=== PATIENT | female | born 1935 | race Caucasian/White ===

== ENCOUNTER → 2017-05-14 | Outpatient (CLI) | payer OTHER ==
[2017-05-14 16:38] LABS: Bilirubin, Urine Neg (Neg); Blood, Urine 2+ (Neg); Glucose Qualitative, Urine Neg (Neg); Ketones, Urine Neg (Neg); Leukocyte Esterase, Urine 3+ (Neg); Nitrite, Urine Neg (Neg); Protein, Urine Neg (Neg); Specific Gravity, Urine 1.015 (1.003-1.022); Urobilinogen, Urine NORM (Normal)
[2017-05-14 16:50] LABS: Appearance, Urine Hazy (Clear); Color, Urine Yellow (P-Yellow); White Blood Cells, Urine TNTC /hpf (0-5)
[2017-05-14 16:51] LABS: Bacteria Many /hpf; Squamous Epithelial Cells Few /hpf (Few)
== END | disposition home or self-care (01) ==
LOC: LAB 16:10
DX: R30.0 Dysuria (principal)
CPT/HCPCS: 81001; 87077; 87086; 87186

== ENCOUNTER → 2018-06-23 | Outpatient (CLI) | payer OTHER ==
[2018-06-23 09:30] LABS: Bilirubin, Urine Neg (Neg); Blood, Urine Neg (Neg); Glucose Qualitative, Urine Neg (Neg); Ketones, Urine Neg (Neg); Leukocyte Esterase, Urine 2+ (Neg); Nitrite, Urine Neg (Neg); Protein, Urine Neg (Neg); Specific Gravity, Urine 1.015 (1.003-1.022); Urobilinogen, Urine NORM (Normal)
[2018-06-23 09:31] LABS: Appearance, Urine Clear (Clear); Color, Urine Yellow (P-Yellow)
[2018-06-23 09:49] LABS: Bacteria Few /hpf; Red Blood Cells, Urine Not Seen /hpf (0-2); Squamous Epithelial Cells Mod /hpf (Few)
[2018-06-23 10:23] LABS: Microalbumin, Random Urine 9.45 mg/L (0.000-20.000)
== END | disposition home or self-care (01) ==
LOC: LAB SHORT 09:08 → LAB 09:08
DX: E78.5 Hyperlipidemia, unspecified (principal); E55.9 Vitamin D deficiency, unspecified; E11.29 Type 2 diabetes mellitus with other diabetic kidney complication
CPT/HCPCS: 81001; 82043; 82570

== ENCOUNTER 2019-03-08 12:32 | Inpatient (IN) | payer OTHER ==
[~2019-03-08] VITALS: Ht 165.1 cm; Wt 102.6 kg
[2019-03-08 13:05] LABS: BASOPHILS ABSOLUTE AUTO 0.04 K/mm3 (0.00-0.23); BASOPHILS PERCENT AUTO 0 % (0-2); EOSINOPHILS ABSOLUTE AUTO 0.03 K/mm3 (0.00-0.68); EOSINOPHILS PERCENT AUTO 0 % (0-6); Hematocrit 34.2 % (33.0-51.0); Hemoglobin 10.6 g/dL (11.5-16.0); IMMATURE GRAN ABSOLUTE AUTO 0.04 K/mm3 (0.00-0.10); IMMATURE GRAN PERCENT AUTO 0 % (0-1); LYMPHOCYTES ABSOLUTE AUTO 0.39 K/mm3 (0.84-5.20); LYMPHOCYTES PERCENT AUTO 4 % (21-46); MONOCYTES ABSOLUTE AUTO 0.49 K/mm3 (0.16-1.47); MONOCYTES PERCENT AUTO 5 % (4-13); Mean Platelet Volume 10.7 fL (9.1-12.4); NEUTROPHILS ABSOLUTE AUTO 8.33 K/mm3 (1.96-9.15); NEUTROPHILS PERCENT AUTO 89 % (41-73); Platelet Count 207 K/mm3 (150-400); RDW Coefficient Variation 15.2 % (11.7-14.2); RDW Standard Deviation 49.5 fL (35.1-46.3); Red Blood Cell Count 3.79 M/mm3 (3.80-5.20); White Blood Cell Count 9.32 K/mm3 (4.00-11.30)
[2019-03-08 13:09] LABS: Mean Corpuscular Volume 90 fL (80-100)
[2019-03-08 13:16] LABS: Alanine Aminotransfer (ALT/SGP 16 U/L (12-78); Albumin, Blood 3.5 g/dL (3.4-5.0); Albumin/Globulin Ratio 0.9 (0.8-1.8); Alk Phos 84 U/L (50-136); Anion Gap 9 mmol/L (6-16); Aspartate Aminotrans (AST/SGOT 8 U/L (12-37); Blood Urea Nitrogen 12 mg/dL (8-24); Bun/Creatinine Ratio 22.4 (12.0-20.0); CO2, Blood 26 mmol/L (21-32); Calcium, Blood 8.6 mg/dL (8.5-10.1); Chloride, Blood 102 mmol/L (98-108); Creatinine, Blood 0.54 mg/dL (0.40-1.00); Globulin, Blood 4.1 g/dL (2.2-4.0); Glomerular Filtration Rate >60 (60-); Glucose, Blood 167 mg/dL (70-99); Potassium, Blood 3.6 mmol/L (3.5-5.5); Sodium, Blood 137 mmol/L (136-145); Total Protein, Blood 7.6 g/dL (6.4-8.2)
[2019-03-08 15:26] LABS: Source, Urine Catheter
[2019-03-08 15:36] LABS: Blood, Urine 5+ (Neg); Glucose Qualitative, Urine Neg (Neg); Ketones, Urine 4+ (Neg); Leukocyte Esterase, Urine 1+ (Neg); Nitrite, Urine Neg (Neg); Protein, Urine 3+ (Neg); Specific Gravity, Urine 1.025 (1.003-1.022); Urobilinogen, Urine 2+ (Normal)
[2019-03-08 15:52] LABS: Appearance, Urine Hazy (Clear); Bilirubin, Urine 1+ (Neg); Color, Urine Amber (P-Yellow)
[2019-03-08 15:53] LABS: Bacteria Many /hpf; Mucus Light (0-Heavy); Red Blood Cells, Urine 25-50 /hpf (0-2); Squamous Epithelial Cells Mod /hpf (Few)
[2019-03-08] MEDS ORDERED: ASPI81CH PO (18:03)
[2019-03-08] MEDS ORDERED: LOSA25 PO (18:05)
[2019-03-08] MEDS ORDERED: AZO CRANBERRY1 EAC1 PO (18:05)
[2019-03-08] MEDS ORDERED: Driminate50 MG PO (18:06)
[2019-03-08] MEDS ORDERED: FERSU300 PO (18:07)
[2019-03-08] MEDS ORDERED: FURO40 PO (18:08)
[2019-03-08] MEDS ORDERED: MOTION RELIEF25 MG PO (18:08)
[2019-03-08] MEDS ORDERED: GUAI600T33 PO (18:09)
[2019-03-08] MEDS ORDERED: NAPR220 PO (18:09)
[2019-03-08] MEDS ORDERED: NIAC500 PO (18:10)
[2019-03-08] MEDS ORDERED: POTA10T PO (18:11)
[2019-03-08] MEDS ORDERED: BICARSIM FORTE125 MG PO (18:12)
[2019-03-08] MEDS ORDERED: TUMS500 MG PO (18:13)
[2019-03-08] MEDS ORDERED: B-121000 MC2 PO (18:14)
[2019-03-08] MEDS ORDERED: ARTHRITIS PAIN650 MG PO (18:14)
[2019-03-08] MEDS ORDERED: THERA-D2000 UNIT PO (18:14)
[2019-03-08] MEDS ORDERED: VITAMIN E400 UNI1 PO (18:15)
[2019-03-08] MEDS ORDERED: Actos15 MG PO (18:17)
[2019-03-08] MEDS ORDERED: PROBIOTIC250 MG PO (18:18)
[2019-03-08] MEDS ORDERED: Hair, Skin & N1 EACH PO (18:18)
[2019-03-08] MEDS ORDERED: ALLEGRA ALLERG180 MG PO (18:19)
[2019-03-08] MEDS ORDERED: BISA5EC PO (18:19)
[2019-03-08] MEDS ORDERED: Nasal Spray30 M1 (18:21)
[2019-03-08] MEDS ORDERED: Mupirocin22 GM TOP (18:22)
--- NOTE | 2019-03-08 19:08 | NUR ---
PATIENT ARRIVES VIA CART AT ABOUT 1830. USED SLIDER TO GET PATIENT TO MEDICAL FLOOR BED. REFUSES TO HAVE GOWN ON AND WANTS HER CLOTHES ON. LOOKS LIKE BLISTER, REDNESS TO RT FOOT/TOES. ALERT. GIVEN TYLENOL FOR FEVER. STS HAS HAD DIFFICULTY AMBULATING. STS COULD STAND AND PIVOT TO BSC. HX N/V X 1 DAY. HAS HAD COUGH FOR ONE MONTH. MADE COMFORTABLE. REPORT TO NIGHT RN
--- NOTE | 2019-03-09 00:39 | NUR ---
PT STATED SOME MEDICATIONS ARE NOT ACCURATE ON [facility] LIST IN HER CHART. UNSURE OF WHICH ONES, LAST TIME TAKEN, AND DOSAGES. NURSE NOTIFY IN TO HAVE MEDS REVIEWED TOMORROW.
--- NOTE | 2019-03-09 03:56 | NUR ---
SHIFT SUMMARY ADMIT @ 1830. AOX4. LS CLEAR, SOB, 2L O2 VIA NC. RT DECIDED RA WAS FINE W/PT SATS. PT PUT O2 BACK ON WHEN SHE WAS FEELING SOB AGAIN. NO C/O NAUSEA OR PAIN. ABDOMINAL FOLDS ARE RED. GROIN AREA IS VERY YEASTY. BLE'S ARE RED, DRY, SWOLLEN, AND PAINFUL TO TOUCH. R FOOT BIG TOE HAS PURPLE BLISTER ON THE BOTTOM SIDE AND A SORE ON THE TOP SIDE. PICTURES ARE IN THE CHART. BED ALARM IS ON FOR SAFETY B/C PT SAID SHE USES A WHEELCHAIR AT BASELINE AND DOESN'T WALK. PT CALLED APPROPRIATELY. TOLERATED PIVOT TO BSC WELL. R AC IV HAS NS @ 100ML/HR. AC AND HS - 155. UA WAS DIRTY. SBP 150'S THIS AM, PT DOES HAVE HX OF HTN. REFUSED RESP PANEL LAB. PODIATRY CONS CALLED AND LEFT MESSAGE WITH DR BRAY. PT IS FROM [employer] AND SOME OF THE MEDS ON HER MED LIST SHE STATES SHE NO LONGER TAKES BUT DOESN'T REMEMBER THE LAST TIME SHE TOOK THEM OR DOSAGES. NOTIFICATION IN TO VERIFY MEDS TODAY. NO PRNS GIVEN. ANTIBIOTICS FOR CELLULITIS AND LOWER RESPIRATORY TRACT INFECTION. UNSURE OF DC PLAN AT THIS TIME.
--- NOTE | 2019-03-09 04:58 | NUR ---
TRIED CALLING PODIATRY CONSULT AGAIN TO MAKE SURE DR BRAY HAS THE CORRECT ROOM NUMBER. SINCE IT WAS AN ANSWERING MACHINE I DIDN'T GIVE ANY PT INFORMATION.
[2019-03-09 05:17] LABS: Hematocrit 31.3 % (33.0-51.0); Hemoglobin 9.7 g/dL (11.5-16.0); Mean Corpuscular Volume 90 fL (80-100); Mean Platelet Volume 11.1 fL (9.1-12.4); Platelet Count 178 K/mm3 (150-400); RDW Coefficient Variation 15.3 % (11.7-14.2); RDW Standard Deviation 50.5 fL (35.1-46.3); Red Blood Cell Count 3.47 M/mm3 (3.80-5.20); White Blood Cell Count 8.46 K/mm3 (4.00-11.30)
[2019-03-09 05:33] LABS: Magnesium, Blood 1.4 mg/dL (1.6-2.4)
[2019-03-09 05:34] LABS: Anion Gap 7 mmol/L (6-16); Blood Urea Nitrogen 13 mg/dL (8-24); Bun/Creatinine Ratio 24.9 (12.0-20.0); CO2, Blood 26 mmol/L (21-32); Calcium, Blood 8.2 mg/dL (8.5-10.1); Chloride, Blood 103 mmol/L (98-108); Creatinine, Blood 0.52 mg/dL (0.40-1.00); Glomerular Filtration Rate >60 (60-); Glucose, Blood 151 mg/dL (70-99); Potassium, Blood 3.7 mmol/L (3.5-5.5); Sodium, Blood 136 mmol/L (136-145)
[2019-03-09 08:38] LABS: Percent Saturation 8.6 % (15.0-50.0)
--- NOTE | 2019-03-09 09:52 | NUR ---
Clinical Visit: Pt seen by request of nurse. Nicolette reports that pt appears to be very depressed. She is not on medication to support her in this area. Pt is alert and oriented X3. She states that her biggest concern right now is her right hip pain. She had the hip repaired recently and it has not been bothering her except in the last couple days. She states that her pain is now a 10/10 on pain scale and that it is so distracting that she isn't able to think correctly and she isn't sleeping. Her room is cold. Turned up heater in room, instructed that this can be adjusted to her comfort. She receieved Tylenol last night for her hip pain and this was not effective. She is wincing in bed. Shortness of breath is noted. Daughter is at bedside. Reviewed POLST form with them. It is dated year 2015, signed by Dr. Mccann. It indicates that she is a DNR/DNI status. She confirms that these are her wishes. She does not want chest compressions or intubation interventions. Discussed with Dr. Khan. Okay to place order for DNR/DNI. He will review medications and place orders for additional pain control. Will remain available. Follow up as needed for symptom management.
--- NOTE | 2019-03-09 14:36 | NUR ---
Echocardiogram using 0.50ml of Definity contrast performed.
--- NOTE | 2019-03-09 15:55 | NUR ---
SATS 78% ON RA WITH ROUTINE VITALS. PATIENT PLACED ON 3LO2 AND SATS >90%. DR. MOSS NOTIFIED AND FLUIDS WERE STOPPED AND LASIX CHANGED TO 10 MG PO TID. PATIENT DENIES ANY SOB WITH THIS AND BREATHING APPEARS TO BE REGULAR AND UNLABORED.
--- NOTE | 2019-03-09 18:23 | NUR ---
PATIENT A/OX4, UP WITH SBA TO RESTROOM. PATIENT REQUIRING O2 THIS EVENING, SATS WERE 78% ON RA WITH ROUTINT VS. PATIENT PLACED ON 3LO2 VIA NC, IV FLUIDS STOPPED AND LASIX INCREASED. D-DIMER ELEVATED AND PE STUDY COMPLETED WHICH WAS NEGATIVE. PATIENT REPORTING L HIP PAIN TODAY AND WAS STARTED ON NORCO WITH STATED RELIEF. 18G IV TO R AC WNL. PATIENT CHANGED TO DNR TODAY, BUT REFUSES TO WEAR PURPLE WRIST BAND. PATIENT ALSO REFUSES LOVENOX INJECTIONS.
--- NOTE | 2019-03-10 00:58 | NUR ---
BEGINNING SHIFT NOTE ASSUMED CARE OF PT AT 1900. PT WAS LYING IN BED WATCHING TV. PT IS ALERT AND ORIENTED, PT REFUSED TO WEAR PURPLE DNR WRIST BAND. HEART SOUNDS REGULAR, PERIPHERAL PULSES STRONG, 20 G IN R AC INISING ABX AT THIS TIME. LUNG SOUNDS CLEAR, ON 3L O2, RA AT BASELINE, SOB ON EXCERTIONS. BOWEL TONES HYPERACTIVE. PT STATES THAT SHE HAS YEAST PROBLEMS IN HER PERIAREA, URINE FREE OF SMELL, YELLOW AND CLEAR, DENIES BURING WITH URINATION. PT HAS JANIE REMOVED FROM R FOOT TODAY, ALYSSA LÓPEZ DUE TO DRAINAGE. PT IS CURRENTLY SLEEPING IN HER ROOM. CALL LIGHT IN REACH, BED IN LOWEST POSTION, WILL CONTINUE TO MONITOR.
[2019-03-10 04:58] LABS: BASOPHILS ABSOLUTE AUTO 0.01 K/mm3 (0.00-0.23); BASOPHILS PERCENT AUTO 0 % (0-2); EOSINOPHILS ABSOLUTE AUTO 0.01 K/mm3 (0.00-0.68); EOSINOPHILS PERCENT AUTO 0 % (0-6); Hemoglobin 9.2 g/dL (11.5-16.0); IMMATURE GRAN ABSOLUTE AUTO 0.06 K/mm3 (0.00-0.10); IMMATURE GRAN PERCENT AUTO 1 % (0-1); LYMPHOCYTES PERCENT AUTO 4 % (21-46); MONOCYTES ABSOLUTE AUTO 1.23 K/mm3 (0.16-1.47); MONOCYTES PERCENT AUTO 11 % (4-13); Mean Corpuscular HGB 28.3 pg (26.0-34.0); Mean Corpuscular HGB Conc 30.7 g/dL (31.5-36.5); Mean Corpuscular Volume 92 fL (80-100); NEUTROPHILS ABSOLUTE AUTO 9.27 K/mm3 (1.96-9.15); NEUTROPHILS PERCENT AUTO 85 % (41-73); Platelet Count 160 K/mm3 (150-400); RDW Coefficient Variation 15.1 % (11.7-14.2); RDW Standard Deviation 50.9 fL (35.1-46.3); Red Blood Cell Count 3.25 M/mm3 (3.80-5.20); White Blood Cell Count 10.98 K/mm3 (4.00-11.30)
--- NOTE | 2019-03-10 05:17 | NUR ---
END SHIFT SUMMARY NO ACUTE CHANGES NOTED T/O NIGHT. PT DRESSING ON R FOOT WAS RE-ENFORCED WITH ABD PAD AND KURLEX. PT SLEPT T/O NIGHT. PT IS CURRENTLY STILL SLEEPING, CALL LIGHT IN REACH, BED IN LOWEST POSITION, WILL CONTINUE TO MONITOR UNTIL DAYSHIFT NURSE ARRIVES.
[2019-03-10 05:20] LABS: Percent Saturation 7.3 % (15.0-50.0)
[2019-03-10 06:18] LABS: Anion Gap 6 mmol/L (6-16); Blood Urea Nitrogen 19 mg/dL (8-24); Bun/Creatinine Ratio 26.2 (12.0-20.0); CO2, Blood 26 mmol/L (21-32); Calcium, Blood 8.2 mg/dL (8.5-10.1); Chloride, Blood 102 mmol/L (98-108); Creatinine, Blood 0.72 mg/dL (0.40-1.00); Glomerular Filtration Rate >60 (60-); Glucose, Blood 160 mg/dL (70-99); Sodium, Blood 134 mmol/L (136-145)
--- NOTE | 2019-03-10 06:43 | NUR ---
PT STRUGGLING TO HAVE A BM THIS AM, REPORTING PAIN. PT FINALLY ABLE TO HAVE BM AND IT IS HARD PELLETS WITH SMALL AMOUNT OF BRIGHT RED BLOOD. APPEARS TO HAVE HEMMORHOIDS ON ANUS. WILL REPORT TO ROSARIO SWENSON.
--- NOTE | 2019-03-10 07:19 | NUR ---
I tried to get pt vitals for an hour, but pt was in the bathroom and would not let me come into the room. 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 I checked with her every 15 minutes, but she wasn't done. MESSI Patel called to have me get her weight, however, I was in an ISO room with another patient and she was still on the potty. I told him she refused vitals until done in the bathroom. So day shift will have to get her weight.
--- NOTE | 2019-03-10 12:08 | NUR ---
Clinical Visit/Symptom management follow up: Pt is alert, oriented, and smiling. She is visiting with her daughter, Deepthi. Deepthi is one of four children. It appears that they enjoy eachother and are happily visiting. Pt reports that her pain is much better. She is getting Casselberry 7.5mg tablets. She had two doses yesterday and one dose today. She states that she is feeling a little sleepy, but not overly. She is relaxed and her pain is controled at a level 4/10. Her pain level yesterday was 10/10. Pt appears to be having less shortness of breath. It appeared yesterday that she was panting due to the pain and her facial muscles are more relaxed than during my evaluation yesterday. She feels overall better. She states that she would rather not go to assisted, but that is the recommendation. She did not know that she could chose home health, which she would rather have. She has gone to rehab before. Instructed that recommendations are important and that it is important for her to have the appropriate care. She verbalizes understanding. She has no other concerns other than wanting to get out of the hospital and get back home. Will remain available if needed. Pt has POLST form on file that appears appropriate. This was confirmed by pt yesterday as being correct and true to her wishes.
--- NOTE | 2019-03-10 12:33 | NUR ---
DR GARCIA HERE TO SEE PT. OTHER FAMILY PRESENT.
--- NOTE | 2019-03-10 17:38 | NUR ---
Spiritual CAre inital note: Mrs. Parsons reports a strong devotion to God. She is not affiliated with a jain. She appears to have a very fundamentalist viewpoint. She appeared to enjoy sharing her beliefs with me and and was pleasantly surprised when I affirmed her [id number]. She is looking forward to "going home to [facility]." She lives alone at an assisted living facility, but her son is physically/emotionally supportive. She denied concerns, pain, or fear. We had an easy rapport and we prayed together at conclusion of visit. [facility] will remain available.
--- NOTE | 2019-03-10 19:14 | NUR ---
SHIFT SUMMARY PT BEEN EATING AND DRINKING. PT BEEN ASSITED WITH ADL'S PRN. PT REFUSING LOVENOX, WAS EDUCATED ON MEDICATION AND REASON FOR TAKING. PT BEEN ASSISTED WITH ADL'S BY FEMALE BAND MAKER. PT USING BS. [facility] IN TO SEE PT TODAY. PT REPORTS "I'M GETTING UP TO BSC SEVERAL TIMES". PT USING CALL LIGHT APPR.
--- NOTE | 2019-03-10 19:32 | NUR ---
PT AT 87% ON RA. PLACED ON 2L VIA NC, O2 SATS NOW 94%.
--- NOTE | 2019-03-10 21:42 | NUR ---
BEGINNING SHIFT SUMMARY ASSUMED CARE OF PT AT 1900. PT WAS LYING IN BED RESTING. PT WAS STATING THAT SHE FELT NAUSEA DUE TO TAKING TWO NORCOS INSTEAD OF HER USUAL ONE FOR PAIN, PT WAS EDUCATED AND STATES SHE WILL NOT TAKE TWO AGAIN. PT O2 WAS IN THE 80'S ON RA, 2L WAS ADMINISTERED, PT IS NOT ABOVE 90%, WILL CONTINUE TO MONITOR. HEART SOUNDS IRREGULAR, LUNG SOUNDS DIMINISHED AT THE BASES, IV INFUSING ABX AT THIS TIME. PT IS CURRENTLY BRUSHING HER TEETH AND GETTING READY FOR BED.
--- NOTE | 2019-03-11 04:46 | NUR ---
END SHIFT SUMMARY NO ACUTE CHANGES NOTED T/O THE NIGHT. PT USED THE BATHROOM ONCE. PT NEEDED A NEW IV DUE TO LEAKAGE, PT TOLERATED WELL. PT REFUSED DAILY WEIGHT THIS AM, WILL OFFER AGAIN BEFORE DAYSHIFT ARRIVES. PT IS CURRENTLY SLEEPING, CALL LIGHT IN REACH, BED IN LOWEST POSTION, WILL CONTINUE TO MONITOR UNTIL DAYSHIFT NURSE ARRIVES.
[2019-03-11 05:01] LABS: Albumin, Blood 2.7 g/dL (3.4-5.0); Anion Gap 7 mmol/L (6-16); Blood Urea Nitrogen 26 mg/dL (8-24); Bun/Creatinine Ratio 25.7 (12.0-20.0); CO2, Blood 25 mmol/L (21-32); Calcium, Blood 8.4 mg/dL (8.5-10.1); Chloride, Blood 101 mmol/L (98-108); Creatinine, Blood 1.01 mg/dL (0.40-1.00); Glomerular Filtration Rate 56 (60-); Glucose, Blood 158 mg/dL (70-99); Phosphorus, Blood 3.2 mg/dL (2.5-4.9); Sodium, Blood 133 mmol/L (136-145)
[2019-03-11] MEDS ORDERED: ACET325 PO (16:37)
[2019-03-11] MEDS ORDERED: FURO20 PO (16:43)
[2019-03-11] MEDS ORDERED: Vsl#3 Capsule1 EACH PO (16:45)
[2019-03-11] MEDS ORDERED: ASCO500 PO (16:48)
[2019-03-11] MEDS ORDERED: ALBU2.5V5 INH (16:48)
[2019-03-11] MEDS ORDERED: SANTYL30 GM TOP (16:49)
[2019-03-11] MEDS ORDERED: INSULIN LI100 UNIT/2 SC (16:51)
[2019-03-11] MEDS ORDERED: METO25ER PO (16:52)
[2019-03-11] MEDS ORDERED: Pedi-Dri 100,0060 GM TOP (16:53)
[2019-03-11] MEDS ORDERED: CLIN300 PO (16:53)
[2019-03-11] MEDS ORDERED: LEVFLO500 PO (16:54)
[2019-03-11] MEDS ORDERED: LIDOCAINE PAIN1 EACH TOP (16:55)
--- NOTE | 2019-03-11 17:02 | NUR ---
SHE IS DRESSED AND IN A CHAIR WAITING FOR HER RIDE TO [facility]. SHE IS ABLE TO BEAR WEIGHT ON HER LEFT LEG AND TRANSFER WITH LIGHT 1 ASSIST. THE NORCO HELPS WITH THE PAIN. PREETHI DC'D. DC MED REC DONE. SHE WILL HAVE A HALF SANDWICH BEFORE SHE GOES. HE SON IS IN THE ROOM WITH HER. ON ROOM AIR. VSS.
--- NOTE | 2019-03-11 18:26 | NUR ---
REPORT GIVEN TO KARTHIK LEMONS ENVIRONMENTAL REMEDIATION CONSULTANT. DISCHARGED BY W/Meng HERCULES AT 1730.
== END 2019-03-11 17:40 | DRG 623 ==
LOC: ER 12:32 → MEDS 17:17
PROVIDERS: Emergency Medicine; Internal Medicine; Physician Assistant; ADMIT Family Medicine
PROC: 0JBQ0ZZ Excision of Right Foot Subcutaneous Tissue and Fascia, Open Approach (ICD-10-PCS; principal; 2019-03-09)
DX: E11.621 Type 2 diabetes mellitus with foot ulcer (principal); L03.116 Cellulitis of left lower limb; I50.22 Chronic systolic (congestive) heart failure; E11.40 Type 2 diabetes mellitus with diabetic neuropathy, unspecified; E11.59 Type 2 diabetes mellitus with other circulatory complications; Z79.4 Long term (current) use of insulin; J40 Bronchitis, not specified as acute or chronic; M16.12 Unilateral primary osteoarthritis, left hip; L30.4 Erythema intertrigo; D50.9 Iron deficiency anemia, unspecified; I11.0 Hypertensive heart disease with heart failure; R53.81 Other malaise; K59.00 Constipation, unspecified; Z79.82 Long term (current) use of aspirin; Z89.421 Acquired absence of other right toe(s); L97.512 Non-pressure chronic ulcer of other part of right foot with fat layer exposed; M41.9 Scoliosis, unspecified
CPT/HCPCS: 36415; 71045; 71260; 73630; 80048; 80053; 80069; 81001; 82607; 82728; 82746; 82947; 83540; 83550; 83605; 83690; 83735; 83880; 84145; 84484; 85025; 85027; 85379; 87040; 87077; 87086; 87147; 87186; 93922; 94760; 96365; 96375; 97110; 97162; 97166; 97530; 97535; 99285-25; A9270; C8929; J1650; J1956; J2405; J2765; J7030; P9612; Q9957; Q9967